=== PATIENT | male | born 1995 | race Caucasian/White ===

== ENCOUNTER 2020-03-31 10:47 | Emergency (ER) | payer OTHER ==
[~2020-03-31] VITALS: Ht 182.9 cm; Wt 108.9 kg
[2020-03-31 11:19] VITALS: BP 132/82
--- NOTE | 2020-03-31 11:51 | NUR ---
SEEN AND EXAMINED BY .
[2020-03-31 12:24] LABS: CALCIUM, SERUM 8.9 mg/dL (8.5-10.1); CREATININE 0.8 mg/dL (0.6-1.3); POTASSIUM 4.2 mmol/L (3.5-5.1)
--- NOTE | 2020-03-31 13:05 | NUR ---
Patient discharged to home in stable condition. Written and verbal after care instructions given. Patient verbalizes understanding of instruction.
[2020-03-31] MEDS ORDERED: BUSP30TA2 PO (13:08)
[2020-03-31] MEDS ORDERED: PROP20TA7 PO (13:08)
[2020-03-31] MEDS ORDERED: OXCA600T5 PO (13:08)
[2020-03-31] MEDS ORDERED: ESCI10TA PO (13:08)
[2020-03-31] MEDS ORDERED: LITH300T PO (13:08)
[2020-03-31] MEDS ORDERED: ATOM100C2 PO (13:08)
[2020-03-31] MEDS ORDERED: MULT-447 PO (13:08)
[2020-03-31] MEDS ORDERED: LITH600C PO (13:08)
[2020-03-31] MEDS ORDERED: PRAZ1CAP5 PO (13:08)
[2020-03-31] MEDS ORDERED: OLAN20TA3 PO (13:08)
[2020-03-31] MEDS ORDERED: LISI-603 PO (13:08)
[2020-03-31] MEDS ORDERED: SODI100037 PO (13:08)
== END 2020-03-31 13:06 | disposition home or self-care (01) ==
LOC: ER 10:53
DX: E87.1 Hypo-osmolality and hyponatremia (principal); K21.9 Gastro-esophageal reflux disease without esophagitis; Z88.7 Allergy status to serum and vaccine; Z91.018 Allergy to other foods
CPT/HCPCS: 36415; 80048-TC

== ENCOUNTER 2020-11-02 10:56 | Emergency (ER) | payer OTHER ==
[~2020-11-02] VITALS: Ht 177.8 cm; Wt 108.9 kg
[~2020-11-02 10:56] MED LIST: ATOM100C2 PO; BUSP30TA2 PO; ESCI10TA PO; LISI20TA30 PO; LITH300T PO; LITH600C PO; MULT-447 PO; OLAN20TA3 PO; OXCA600T5 PO; PRAZ1CAP5 PO; PROP20TA7 PO; SODI100037 PO
--- NOTE | 2020-11-02 11:04 | NUR ---
PT TO ED BED 02. SENT BY PMD FOR ELEVATED LITHIUM LEVEL. PT C/O "SOME LIGHTHEADEDNESS" BUT STATES HE IS OK. STABLE VITALS. NAD NOTED. AWAITING MD VEGA.
--- NOTE | 2020-11-02 11:08 | NUR ---
DR FARRAR AT BEDSIDE FOR EVAL.
[2020-11-02 11:23] LABS: BASOPHILS # (AUTO) 0.1 /CMM (0.0-0.2); EOSINOPHILS % (AUTO) 3.6 % (0.0-6.0); HEMATOCRIT 32 % (39-51); HEMOGLOBIN 10.6 g/dL (13.5-17.5); LYMPHOCYTES # (AUTO) 1.2 /CMM (0.8-4.8); MEAN CORPUSCULAR HGB CONC 34 g/dl (31.0-36.0); MEAN CORPUSCULAR VOLUME 88 fL (80-96); MONOCYTES # (AUTO) 0.5 /CMM (0.1-1.30); MONOCYTES % (AUTO) 6.6 % (2.0-12.0); NEUTROPHILS # (AUTO) 5.8 /CMM (1.8-8.9); NEUTROPHILS % (AUTO) 73.8 % (43.0-81.0); PLATELET COUNT (AUTO) 255 /CMM (150-450); RED BLOOD CELL COUNT(AUTO) 3.62 MIL/uL (4.5-6.0); WHITE BLOOD COUNT (AUTO) 7.8 K/uL (4.3-11.0)
[2020-11-02 11:32] LABS: CALCIUM, SERUM 9.6 mg/dL (8.5-10.1); CREATININE 1.6 mg/dL (0.6-1.3); POTASSIUM 5.7 mmol/L (3.5-5.1)
--- NOTE | 2020-11-02 12:18 | NUR ---
CALLED DR. MOON
--- NOTE | 2020-11-02 13:00 | NUR ---
Patient discharged to home in stable condition. Written and verbal after care instructions given. Facility floor care technician and Patient verbalizes understanding of instruction.
[2020-11-02 13:01] VITALS: BP 138/84
== END 2020-11-02 13:02 | disposition home or self-care (01) ==
LOC: ER 11:00
DX: T43.595A Adverse effect of other antipsychotics and neuroleptics, initial encounter (principal); I10 Essential (primary) hypertension; K21.9 Gastro-esophageal reflux disease without esophagitis; F32.9 Major depressive disorder, single episode, unspecified; F41.9 Anxiety disorder, unspecified; Z91.018 Allergy to other foods; Z79.899 Other long term (current) drug therapy; Y92.89 Other specified places as the place of occurrence of the external cause
CPT/HCPCS: 36415; 80048-TC; 84443-TC; 85025-TC